=== PATIENT | female | born 1990 | race Caucasian/White ===

== ENCOUNTER 2021-10-15 18:54 | Emergency (ER) | payer BC ==
[~2021-10-15] VITALS: Ht 160 cm; Wt 101.6 kg
[2021-10-15 19:21] VITALS: BP 118/78
--- NOTE | 2021-10-15 20:23 | NUR ---
PT AMBULATED TO BED #9
--- NOTE | 2021-10-15 20:48 | NUR ---
31 Y/O F PRESENTS TO ED WITH C/O FALL [phone]. PT REPORTS SLIDING DOWN THE STAIRS ON HER AND HITTING HER TAILBONE. NO LOC. PT 19 WEEKS . C/O TAILBONE AND PELVIC PAIN. MEDHX- DENIES NKA
--- NOTE | 2021-10-15 21:19 | NUR ---
L&D AT BEDSIDE FOR FHR
--- NOTE | 2021-10-15 21:32 | NUR ---
Patient being evaluated by physician at bedside.
[2021-10-15 21:49] VITALS: BP 121/66
--- NOTE | 2021-10-15 21:49 | NUR ---
Patient discharged with v/s stable. Written and verbal after care instructions given FALL and explained. Patient verbalized understanding. Ambulatory with steady gait. All questions addressed prior to discharge. Advised to follow up with PMD.
== END 2021-10-15 21:49 | disposition home or self-care (01) ==
LOC: MED 18:54
DX: O9A.212 Injury, poisoning and certain other consequences of external causes complicating pregnancy, second trimester (principal); O26.892 Other specified pregnancy related conditions, second trimester; R10.30 Lower abdominal pain, unspecified; M54.9 Dorsalgia, unspecified; Z91.040 Latex allergy status; Z90.49 Acquired absence of other specified parts of digestive tract; Z98.890 Other specified postprocedural states; Z3A.19 19 weeks gestation of pregnancy; W10.8XXA Fall (on) (from) other stairs and steps, initial encounter; Y93.89 Activity, other specified; Y92.89 Other specified places as the place of occurrence of the external cause; Y99.8 Other external cause status
CPT/HCPCS: 99281

== ENCOUNTER 2022-02-01 20:48 | Inpatient (IN) | payer BC ==
[~2022-02-01] VITALS: Ht 160 cm; Wt 111.1 kg
[2022-02-01] MEDS ORDERED: PRETAB PO (21:20)
[2022-02-01 21:22] VITALS: BP 108/59
[2022-02-01 22:39] LABS: BASOPHILS % (AUTO) 0.3 % (0.0-2.0); EOSINOPHILS # (AUTO) 0.1 K/uL (0-0.4); EOSINOPHILS % (AUTO) 1.4 % (0.0-4.0); HEMATOCRIT 30.3 % (36-48); HEMOGLOBIN 10.1 g/dL (12.0-16.0); LYMPHOCYTES # (AUTO) 2.5 K/uL (2.5-16.5); MEAN CORPUSCULAR HEMOGLOBIN 28 pg (27-31); MEAN CORPUSCULAR HGB CONC 33 g/dL (33-37); MEAN CORPUSCULAR VOLUME 83.3 fL (80-94); MONOCYTES # (AUTO) 0.6 K/uL (0.8-1.0); MONOCYTES % (AUTO) 6.1 % (1.7-9.3); NEUTROPHILS # (AUTO) 7.1 K/uL (1.8-7.7); NEUTROPHILS % (AUTO) 68.2 % (42.2-75.2); PLATELET COUNT (AUTO) 218 K/uL (140-450); RED BLOOD CELL COUNT(AUTO) 3.64 MIL/uL (4.20-5.40); RED CELL DISTRIBUTION WIDTH 14.1 % (11.6-13.7); WHITE BLOOD COUNT (AUTO) 10.4 K/uL (4.8-10.8)
[2022-02-01 22:58] LABS: ALBUMIN 2.2 g/dL (3.4-5.0); ANION GAP 11.8 (8-16); CREATININE 0.6 mg/dL (0.6-1.3); POTASSIUM 3.8 mmol/L (3.5-5.1); TOTAL BILIRUBIN 0.3 mg/dL (0.0-1.0)
[2022-02-02] MEDS ORDERED: BETAMETH ACET/BETAMETH NA PH 30 MG/5 ML VIAL IM SCH (01:35)
[2022-02-02] MEDS ORDERED: MORPHINE SULFATE 5 MG/ML VIAL IM PRN (01:40)
[2022-02-02] MEDS ORDERED: BETAMETH ACET/BETAMETH NA PH 30 MG/5 ML VIAL IM ONE (01:42)
[2022-02-02] MEDS ORDERED: MORPHINE SULFATE 5 MG/ML VIAL IVP PRN (01:55)
[2022-02-02] MEDS ORDERED: MORPHINE SULFATE 10 MG/ML VIAL ONE ×2 (02:06→15:18)
[2022-02-02] MEDS: LACTATED RINGERS 1,000 ML IV SCH ×3 (02:33→18:43)
--- NOTE | 2022-02-02 10:24 | NUR ---
PATIENT HAS BEEN SCREENED AND CATEGORIZED LOW NUTRITION RISK. PATIENT WILL BE SEEN WITHIN 7 DAYS OF ADMISSION. 02/08/22 REVIEWED BY JSESI SANC[address]Z RD
[2022-02-02 14:15] LABS: PROTHROMBIN TIME 9.8 secs (10.8-13.4)
[2022-02-02 14:28] LABS: BILIRUBIN,URINE NEGATIVE (NEGATIVE); BLOOD, URINE NEGATIVE (NEGATIVE); COLOR,URINE YELLOW (YELLOW); LEUKOCYTE ESTERASE ,URINE 1+ (NEGATIVE); NITRITE, URINE NEGATIVE (NEGATIVE); UGLUCOSE NEGATIVE (NEGATIVE)
[2022-02-02 14:33] LABS: APPEARANCE,URINE HAZY (CLEAR)
[2022-02-02 14:58] LABS: RBC,URINE NONE SEEN /HPF (0-5); WBC,URINE 0-5 /HPF (0-5)
[2022-02-02] MEDS ORDERED: diphenhydrAMINE 50 MG/ML VIAL IVP PRN (15:15)
[2022-02-02 15:22] VITALS: BP 115/64
[2022-02-02 21:04] LABS: BASOPHILS % (AUTO) 0.2 % (0.0-2.0); HEMATOCRIT 30.6 % (36-48); HEMOGLOBIN 10.3 g/dL (12.0-16.0); LYMPHOCYTES # (AUTO) 1.4 K/uL (2.5-16.5); LYMPHOCYTES % (AUTO) 13.1 % (20.5-51.1); MEAN CORPUSCULAR HEMOGLOBIN 28 pg (27-31); MEAN CORPUSCULAR HGB CONC 34 g/dL (33-37); MEAN CORPUSCULAR VOLUME 82.2 fL (80-94); MONOCYTES # (AUTO) 0.6 K/uL (0.8-1.0); MONOCYTES % (AUTO) 5.6 % (1.7-9.3); NEUTROPHILS # (AUTO) 8.7 K/uL (1.8-7.7); NEUTROPHILS % (AUTO) 81.1 % (42.2-75.2); PLATELET COUNT (AUTO) 216 K/uL (140-450); RED BLOOD CELL COUNT(AUTO) 3.72 MIL/uL (4.20-5.40); RED CELL DISTRIBUTION WIDTH 14.5 % (11.6-13.7); WHITE BLOOD COUNT (AUTO) 10.7 K/uL (4.8-10.8)
[2022-02-02 21:24] LABS: ALBUMIN 2.3 g/dL (3.4-5.0); ANION GAP 13.4 (8-16); CARBON DIOXIDE 23.4 mmol/L (21-32); CREATININE 0.6 mg/dL (0.6-1.3); POTASSIUM 3.8 mmol/L (3.5-5.1); TOTAL BILIRUBIN 0.5 mg/dL (0.0-1.0)
[2022-02-03] MEDS ORDERED: BETAMETH ACET/BETAMETH NA PH 30 MG/5 ML VIAL IM ONE (01:39)
[2022-02-03] MEDS: LACTATED RINGERS 1,000 ML IV SCH (03:06)
== END 2022-02-03 13:40 | disposition home or self-care (01) | DRG 833 ==
LOC: MLD 20:48 → MFCC 02-02 01:25 → OBSVTOIN 02-02 20:33
PROVIDERS: ADMIT Obstetrics & Gynecology; ATTEND Obstetrics & Gynecology
DX: O99.513 Diseases of the respiratory system complicating pregnancy, third trimester (principal); O9A.213 Injury, poisoning and certain other consequences of external causes complicating pregnancy, third trimester; O99.013 Anemia complicating pregnancy, third trimester; Z3A.35 35 weeks gestation of pregnancy
CPT/HCPCS: G0378 ×4; 36415; 76805; 76815; 76819; 80053; 81001; 85025; 85384; 85610; 85730; 86886; 86900; 86901; 87086; 87653-90; J0702; J1200; J2270; J7120; Q0092

== ENCOUNTER 2022-02-26 22:30 | Observation (INO) | payer BC ==
[~2022-02-26] VITALS: Ht 160 cm; Wt 113.4 kg
[~2022-02-26 22:30] MED LIST: PRETAB PO
[2022-02-26 22:47] VITALS: BP 110/70
[2022-02-26] MEDS ORDERED: ASPI-1822 PO (23:03)
[2022-02-26] MEDS ORDERED: OMEP40EC23 PO (23:03)
== END 2022-02-27 00:45 | disposition home or self-care (01) ==
LOC: MLD 22:30
PROVIDERS: ADMIT Obstetrics & Gynecology; ATTEND Obstetrics & Gynecology
DX: O62.9 Abnormality of forces of labor, unspecified (principal); O42.92 Full-term premature rupture of membranes, unspecified as to length of time between rupture and onset of labor; Z3A.38 38 weeks gestation of pregnancy
CPT/HCPCS: 76819; G0378; Q0092

== ENCOUNTER 2022-02-28 05:00 | Inpatient (IN) | payer BC ==
[~2022-02-28] VITALS: Ht 160 cm; Wt 115.7 kg
[~2022-02-28 05:00] MED LIST changes: +ASPI-1822 PO; +OMEP40EC23 PO
[2022-02-28] MEDS ORDERED: CARBOPROST 250 MCG/ML AMP IM PRN (05:35)
[2022-02-28] MEDS ORDERED: METHYLERGONOVINE 0.2 MG/ML AMP IM PRN ×2 (05:35→09:10)
[2022-02-28] MEDS: LACTATED RINGERS 1,000 ML IV SCH ×2 (06:20→07:17)
[2022-02-28 06:40] VITALS: BP 113/56
--- NOTE | 2022-02-28 06:41 | NUR ---
PATIENT HAS BEEN SCREENED AND CATEGORIZED LOW NUTRITION RISK. PATIENT WILL BE SEEN WITHIN 7 DAYS OF ADMISSION. 02/28/22-03/07/[address]
[2022-02-28 06:51] LABS: BASOPHILS % (AUTO) 0.5 % (0.0-2.0); EOSINOPHILS # (AUTO) 0.1 K/uL (0-0.4); EOSINOPHILS % (AUTO) 1.4 % (0.0-4.0); HEMOGLOBIN 9.8 g/dL (12.0-16.0); LYMPHOCYTES # (AUTO) 2.7 K/uL (2.5-16.5); LYMPHOCYTES % (AUTO) 25.3 % (20.5-51.1); MEAN CORPUSCULAR HEMOGLOBIN 26 pg (27-31); MEAN CORPUSCULAR HGB CONC 33 g/dL (33-37); MEAN CORPUSCULAR VOLUME 79.1 fL (80-94); MONOCYTES # (AUTO) 0.7 K/uL (0.8-1.0); MONOCYTES % (AUTO) 6.3 % (1.7-9.3); NEUTROPHILS % (AUTO) 66.5 % (42.2-75.2); PLATELET COUNT (AUTO) 240 K/uL (140-450); RED BLOOD CELL COUNT(AUTO) 3.79 MIL/uL (4.20-5.40); RED CELL DISTRIBUTION WIDTH 15.1 % (11.6-13.7); WHITE BLOOD COUNT (AUTO) 10.6 K/uL (4.8-10.8)
[2022-02-28 06:53] LABS: APPEARANCE,URINE SL CLOUDY (CLEAR); BILIRUBIN,URINE NEGATIVE (NEGATIVE); BLOOD, URINE NEGATIVE (NEGATIVE); COLOR,URINE YELLOW (YELLOW); LEUKOCYTE ESTERASE ,URINE NEGATIVE (NEGATIVE); NITRITE, URINE NEGATIVE (NEGATIVE); UGLUCOSE NEGATIVE (NEGATIVE)
[2022-02-28 07:00] LABS: ALBUMIN 2.1 g/dL (3.4-5.0); ANION GAP 14.7 (8-16); CARBON DIOXIDE 22.8 mmol/L (21-32); CREATININE 0.6 mg/dL (0.6-1.3); POTASSIUM 3.5 mmol/L (3.5-5.1); TOTAL BILIRUBIN 0.3 mg/dL (0.0-1.0)
[2022-02-28 07:03] LABS: PROTHROMBIN TIME 9.7 secs (10.8-13.4)
[2022-02-28] MEDS ORDERED: ceFAZolin 2,000 MG VIAL ONE ×2 (07:12→08:00)
[2022-02-28] MEDS ORDERED: METOCLOPRAMIDE 10 MG/2 ML INJ VIAL ONE (08:00)
[2022-02-28] MEDS ORDERED: ONDANSETRON 4 MG/2 ML VIAL ONE (08:00)
[2022-02-28] MEDS ORDERED: MORPHINE PRES FREE 10 MG/10 ML AMP IV ONE (08:00)
[2022-02-28] MEDS ORDERED: OXYTOCIN 10 UNITS/ML VIAL ONE (08:00)
[2022-02-28] MEDS ORDERED: OXYTOCIN 20 UNITS/LR PREMIX 1,000 ML IV ONE ×2 (08:59→17:16)
[2022-02-28] MEDS ORDERED: MEASLES, MUMPS, AND RUBELLA 1 VIAL SQVAC ONE (09:10)
[2022-02-28] MEDS ORDERED: NALOXONE 0.4 MG/ML VIAL IVP PRN (09:15)
[2022-02-28] MEDS ORDERED: ONDANSETRON 4 MG/2 ML VIAL IVP PRN (09:15)
[2022-02-28] MEDS ORDERED: OXYTOCIN 20 UNITS in LACTATED RINGERS 1,000 ML IV SCH (09:15)
[2022-02-28] MEDS: OXYTOCIN 20 UNITS in LACTATED RINGERS 1,000 ML IV SCH ×2 (10:02→17:52)
[2022-02-28] MEDS: diphenhydrAMINE 50 MG/ML VIAL IVP PRN ×4 (10:29→23:57)
[2022-02-28] MEDS ORDERED: diphenhydrAMINE 50 MG/ML VIAL IVP SCH (11:16)
[2022-02-28] MEDS: KETOROLAC 30 MG/ML VIAL IVP PRN (13:03)
[2022-03-01] MEDS ORDERED: OXYTOCIN 20 UNITS/LR PREMIX 1,000 ML IV ONE (00:46)
[2022-03-01] MEDS: KETOROLAC 30 MG/ML VIAL IVP PRN (01:08)
[2022-03-01] MEDS: OXYTOCIN 20 UNITS in LACTATED RINGERS 1,000 ML IV SCH (02:01)
[2022-03-01 06:07] LABS: BASOPHILS % (AUTO) 0.1 % (0.0-2.0); EOSINOPHILS # (AUTO) 0.1 K/uL (0-0.4); EOSINOPHILS % (AUTO) 1.2 % (0.0-4.0); HEMATOCRIT 25.5 % (36-48); HEMOGLOBIN 8.5 g/dL (12.0-16.0); LYMPHOCYTES # (AUTO) 1.6 K/uL (2.5-16.5); MEAN CORPUSCULAR HEMOGLOBIN 26 pg (27-31); MEAN CORPUSCULAR HGB CONC 33 g/dL (33-37); MEAN CORPUSCULAR VOLUME 78.7 fL (80-94); MONOCYTES # (AUTO) 0.5 K/uL (0.8-1.0); MONOCYTES % (AUTO) 5.5 % (1.7-9.3); NEUTROPHILS # (AUTO) 7.4 K/uL (1.8-7.7); NEUTROPHILS % (AUTO) 76.2 % (42.2-75.2); PLATELET COUNT (AUTO) 192 K/uL (140-450); RED BLOOD CELL COUNT(AUTO) 3.24 MIL/uL (4.20-5.40); WHITE BLOOD COUNT (AUTO) 9.7 K/uL (4.8-10.8)
[2022-03-01] MEDS: diphenhydrAMINE 50 MG/ML VIAL IVP PRN (08:26)
[2022-03-01] MEDS: bisacodyL 10 MG SUPP RC SCH (09:19)
[2022-03-01] MEDS: oxyCODONE/APAP 5/325 MG 1 TAB TAB PO PRN ×3 (09:22→20:05)
[2022-03-01] MEDS ORDERED: SODIUM FERRIC GLUCONATE 125 MG in NACL 0.9% 100 ML IV SCH (10:30)
[2022-03-01] MEDS ORDERED: IBUPROFEN 800 MG TAB ONE (23:01)
[2022-03-01] MEDS: IBUPROFEN 800 MG TAB PO PRN (23:16)
[2022-03-02] MEDS: oxyCODONE/APAP 5/325 MG 1 TAB TAB PO PRN ×3 (02:01→13:59)
[2022-03-02] MEDS: IBUPROFEN 800 MG TAB PO PRN ×3 (05:02→16:52)
[2022-03-02] MEDS: bisacodyL 10 MG SUPP RC SCH (09:00)
== END 2022-03-02 18:35 | disposition home or self-care (01) | DRG 787 ==
LOC: MLD 05:00 → MFCC 10:59
PROVIDERS: ADMIT Obstetrics & Gynecology; ATTEND Obstetrics & Gynecology
PROC: 10D00Z1 Extraction of Products of Conception, Low, Open Approach (ICD-10-PCS; principal; 2022-02-28 08:00)
DX: O36.8130 Decreased fetal movements, third trimester, not applicable or unspecified (principal); D62 Acute posthemorrhagic anemia; O90.81 Anemia of the puerperium; Z20.822 Contact with and (suspected) exposure to COVID-19; Z3A.39 39 weeks gestation of pregnancy; Z37.0 Single live birth
CPT/HCPCS: 36415; 51702; 80053; 81003; 85025; 85610; 85730; 86592; 86762; 86886; 86900; 86901; 87081; 87340; J1200; J1885; J2270; J2405; J2590; J2765; J2916; J7120

== ENCOUNTER 2022-04-01 20:34 | Emergency (ER) | payer BC ==
[~2022-04-01] VITALS: Ht 160 cm; Wt 106.6 kg
[2022-04-01 20:55] VITALS: BP 120/75
--- NOTE | 2022-04-01 21:00 | NUR ---
TO LOBBY A/W BED AMBULATORY
--- NOTE | 2022-04-01 21:52 | NUR ---
URINE COLLECTED AND SENT TO LAB, RECEIVED BY JANELL.
[2022-04-01 23:11] LABS: APPEARANCE,URINE CLOUDY (CLEAR); BILIRUBIN,URINE NEGATIVE (NEGATIVE); BLOOD, URINE NEGATIVE (NEGATIVE); COLOR,URINE YELLOW (YELLOW); LEUKOCYTE ESTERASE ,URINE TRACE (NEGATIVE); NITRITE, URINE NEGATIVE (NEGATIVE); PH,URINE 6.5 (5.0-9.0); UGLUCOSE NEGATIVE (NEGATIVE)
[2022-04-01 23:11] LABS: BASOPHILS # (AUTO) 0.1 K/uL (0.00-0.22); BASOPHILS % (AUTO) 1.2 % (0.0-2.0); EOSINOPHILS # (AUTO) 0.6 K/uL (0-0.4); EOSINOPHILS % (AUTO) 6.2 % (0.0-4.0); HEMOGLOBIN 11.1 g/dL (12.0-16.0); LYMPHOCYTES % (AUTO) 31.3 % (20.5-51.1); MEAN CORPUSCULAR HEMOGLOBIN 26 pg (27-31); MEAN CORPUSCULAR HGB CONC 32 g/dL (33-37); MEAN CORPUSCULAR VOLUME 80.3 fL (80-94); MONOCYTES # (AUTO) 0.7 K/uL (0.8-1.0); MONOCYTES % (AUTO) 6.9 % (1.7-9.3); NEUTROPHILS # (AUTO) 5.2 K/uL (1.8-7.7); NEUTROPHILS % (AUTO) 54.4 % (42.2-75.2); PLATELET COUNT (AUTO) 300 K/uL (140-450); RED BLOOD CELL COUNT(AUTO) 4.36 MIL/uL (4.20-5.40); RED CELL DISTRIBUTION WIDTH 16.8 % (11.6-13.7); WHITE BLOOD COUNT (AUTO) 9.5 K/uL (4.8-10.8)
[2022-04-01 23:25] LABS: RBC,URINE 0-5 /HPF (0-5)
--- NOTE | 2022-04-01 23:34 | NUR ---
PT TAKEN TO BED 11 FROM RADIOLOGY
[2022-04-01 23:35] LABS: ALBUMIN 3.2 g/dL (3.4-5.0); ANION GAP 12.9 (8-16); CARBON DIOXIDE 30.1 mmol/L (21-32); CREATININE 0.8 mg/dL (0.6-1.3); TOTAL BILIRUBIN 0.2 mg/dL (0.0-1.0)
[2022-04-02] MEDS ORDERED: KETOROLAC 30 MG/ML VIAL IVP ONE (00:45)
[2022-04-02] MEDS ORDERED: MORPHINE SULFATE 4 MG/ML SYR IVP ONE ×2 (00:45→02:25)
[2022-04-02] MEDS ORDERED: ONDANSETRON 4 MG/2 ML VIAL IVP ONE (00:45)
--- NOTE | 2022-04-02 03:24 | NUR ---
Ultrasound at bedside.
[2022-04-02] MEDS ORDERED: NITR100C7 PO (05:07)
[2022-04-02] MEDS ORDERED: BEN10 PO (05:07)
[2022-04-02] MEDS ORDERED: ACET-8905 PO (05:07)
[2022-04-02] MEDS ORDERED: DOCU-299 PO (05:07)
--- NOTE | 2022-04-02 05:30 | NUR ---
IV removed, catheter intact and site benign. Applied folded 4x4 gauze and tape to stop bleeding.
[2022-04-02 05:33] VITALS: BP 96/53
--- NOTE | 2022-04-02 05:33 | NUR ---
Patient discharged with v/s WNL. Written and verbal after care instructions given and explained about Urinary Tract Infection and Abdominal Pain. Patient alert, oriented and verbalized understanding of instructions. Ambulatory with steady gait. All questions addressed prior to discharge. ID band removed. Patient advised to follow up with PMD. Rx of Colace, Macrobid 100mg, Bentyl, and Hydrocodon-Acetaminophen 5-325 given. Patient educated on indication of medication including possible reaction and side effects. Opportunity to ask questions provided and answered.
== END 2022-04-02 05:33 | disposition home or self-care (01) ==
LOC: MED 20:34
DX: N39.0 Urinary tract infection, site not specified (principal); K21.9 Gastro-esophageal reflux disease without esophagitis
CPT/HCPCS: 36415; 74176; 76856; 80053; 81001; 81025; 83690; 85025; 87086; 93976; 96374; 96375; 99285; J1885; J2270; J2405; Q0092